=== PATIENT | male | born 1945 | race Caucasian/White ===

== ENCOUNTER 2017-10-07 17:22 | Emergency (ER) | payer BC ==
[2017-10-07 17:58] LABS: BILIRUBIN,URINE NEGATIVE (NEGATIVE); GLUCOSE, URINE (UA) NEGATIVE (NEGATIVE); KETONES,URINE (UA) NEGATIVE (NEGATIVE); LEUKOCYTE ESTERASE, URINE NEGATIVE (NEGATIVE); NITRITE,URINE NEGATIVE (NEGATIVE); OCCULT BLOOD,URINE NEGATIVE (NEGATIVE); PH,URINE 6.5 PH (5.0-7.5); PROTEIN,URINE TRACE mg/dL (NEGATIVE); UROBILINOGEN,URINE 0.2 (NORMAL) E.U./dL (NORMAL)
[2017-10-07 17:59] LABS: CLARITY,URINE CLEAR (CLEAR)
--- NOTE | 2017-10-07 18:06 | ED Physician Documentation ---
PD HPI ABD PAIN - Stated complaint Stated Complaint: LOW ABD PX - Chief complaint Chief Complaint: Abd Pain - History obtained from History obtained from: Patient - History of Present Illness Timing - onset: How many weeks ago (1) Timing - duration: Days (6), Weeks (1) Timing - details: Gradual onset, Still present, Waxing and waning Quality: Sharp, Other (burning/ shooting pain to right inguinal area.) Location: RLQ Radiation: Right flank Improved by: No: Eating, Laying still Worsened by: No: Eating, Breathing Associated symptoms: No: Fever Similar symptoms before: Has not had sx before Recently seen: Not recently seen Review of Systems Constitutional: denies: Fever, Chills, Myalgias Nose: denies: Rhinorrhea / runny nose, Congestion Throat: denies: Sore throat Respiratory: denies: Cough GI: reports: Constipation (somewhat firm and limited amount for a week). denies : Nausea, Vomiting, Diarrhea : reports: Frequency. denies: Dysuria, Hematuria, Discharge Skin: denies: Rash, Lesions PD PAST MEDICAL HISTORY - Past Medical History Cardiovascular: Hypertension, Coronary artery disease Endocrine/Autoimmune: Type 2 diabetes - Past Surgical History Past Surgical History: Yes Derm: Skin cancer surgery - Present Medications Home Medications: Ambulatory Orders Medication Instructions Recorded Confirmed Amlodipine Besylate 10 mg PO DAILY 08/22/15 08/22/15 Aspirin [Aspir 81] 81 mg PO DAILY 08/22/15 08/22/15 Labetalol [Trandate] 150 mg PO DAILY 08/22/15 08/22/15 Losartan/Hydrochlorothiazide 1 tab PO DAILY 08/22/15 08/22/15 [Losartan-Hctz 100-12.5 mg Tab] metFORMIN [Glucophage] 500 mg PO BID 08/22/15 08/22/15 Ciprofloxacin HCl [Cipro] 500 mg PO DAILY 10/07/17 Docusate Sodium 100 mg PO DAILY #20 capsule 10/07/17 Simvastatin 10 mg PO DAILY 10/07/17 Tramadol HCl 50 mg PO Q6H PRN #20 tablet 10/07/17 - Allergies Allergies/Adverse Reactions: Allergies Allergy/AdvReac Type Severity Reaction Status Date / Time Penicillins Allergy Respiratory Verified 08/22/15 14:39 terazosin [From Hytrin] AdvReac depression Verified 10/07/17 17:34 - Social History Does the pt smoke?: Yes Smoking Status: Current every day smoker Does the pt drink ETOH?: Yes Does the pt have substance abuse?: No - Immunizations Immunizations are current?: Yes PD ED PE NORMAL - Vitals Vital signs reviewed: Yes - General General: Alert and oriented X 3, No acute distress, Well developed/nourished - HEENT HEENT: PERRL, Moist mucous membranes, Pharynx benign - Neck Neck: Supple, no meningeal sign, No bony TTP, No adenopathy - Cardiac Cardiac: RRR, No murmur - Respiratory Respiratory: Clear bilaterally - Abdomen Abdomen: Normal bowel sounds, Soft, Non tender, Non distended - Rectal Rectal: Deferred, Other (scrotum and testicles not tender. no inguinal hernia noted. ) - Back Back: No CVA TTP - Derm Derm: Normal color, Warm and dry, No rash - Extremities Extremities: No tenderness to palpate, Normal ROM s pain - Neuro Neuro: Alert and oriented X 3, No motor deficit, Normal speech Results - Vitals Vitals: Vital Signs - 24 hr 10/07/17 10/07/17 10/07/17 17:30 19:57 20:12 Temperature 36.7 C Heart Rate 84 80 Respiratory 19 18 17 Rate Blood Pressure 163/95 H 180/88 H O2 Saturation 97 96 10/07/17 10/07/17 20:30 22:07 Temperature 36.9 C 36.8 C Heart Rate 80 81 Respiratory 16 18 Rate Blood Pressure 166/76 H 168/135 H O2 Saturation 94 95 Oxygen O2 Source Room air - Labs Labs: Laboratory Tests 10/07/17 10/07/17 10/07/17 17:45 19:18 19:18 WBC 8.5 RBC 4.62 L Hgb 14.7 Hct 42.4 MCV 91.8 MCH 31.9 H MCHC 34.7 RDW 13.1 Plt Count 248 MPV 8.4 Neut # 5.3 Lymph # 2.2 [place] # 0.7 Eos # 0.3 Baso # 0.1 Absolute Nucleated RBC 0.00 Nucleated RBC % 0.0 Sodium 136 Potassium 3.1 L Chloride 98 L Carbon Dioxide 25 Anion Gap 13.0 BUN 11 Creatinine 0.7 Estimated GFR (MDRD) 111 Glucose 115 H Calcium 9.2 Total Bilirubin 0.8 AST 23 ALT 26 Alkaline Phosphatase 62 Total Protein 7.2 Albumin 4.1 Globulin 3.1 Albumin/Globulin Ratio 1.3 Lipase 30 Urine Color YELLOW Urine Clarity CLEAR Urine pH 6.5 Ur Specific [place] 1.010 Urine Protein TRACE Urine Glucose (UA) NEGATIVE Urine Ketones NEGATIVE Urine Occult Blood NEGATIVE Urine Nitrite NEGATIVE Urine Bilirubin NEGATIVE Urine Urobilinogen 0.2 (NORMAL) Ur Leukocyte Esterase NEGATIVE Ur Microscopic Review NOT INDICATED Urine Culture Comments NOT INDICATED - Rads (name of study) abd CT Radiology: Prelim report reviewed (no obvious cause for the pain) PD MEDICAL DECISION MAKING - ED course Complexity details: reviewed results, considered differential, d/w patient, d/w family (daughter) Departure - Departure Disposition: 01 Home, Self Care Clinical Impression: Right sided abdominal pain Condition: Stable Record reviewed to determine appropriate education?: Yes Instructions: ED Abdominal Pain Unkn Cause Follow-Up: Farzad Gonzalez MD [Primary Care Provider] - Prescriptions: Docusate Sodium 100 mg PO DAILY #20 capsule Tramadol HCl 50 mg PO Q6H PRN #20 tablet PRN Reason: Pain Comments: There is no obvious cause for the pain on the lower right abdomen that you have. This is based on the CT scan urine and blood tests. There are certainly things I will hurt that do not show on these tests. Consider muscular pain, nerve pain, irritated colon as some possibilities. I would have you continue with naproxen or ibuprofen twice daily. Add pain medicine if needed for worse pain. Take a daily stool softener so you do not get constipated from those. Less heavy physical activity in case at some muscular pain. Recheck if not better over the next 3-4 days. Discharge Date/Time: 10/07/17 22:12
[2017-10-07] MEDS ORDERED: SODIUM CHLORIDE 0.9% 1,000 ML IV ONE (19:03)
[2017-10-07] MEDS ORDERED: KETOROLAC 60 MG/2 ML VIAL IVP STA (19:04)
[2017-10-07 19:39] LABS: BASOPHILS # (AUTO) 0.1 10^3/uL (0.0-0.1); BASOPHILS % (AUTO) 0.6 %; EOSINOPHILS # (AUTO) 0.3 10^3/uL (0.0-0.7); HGB - HEMOGLOBIN 14.7 g/dL (14.0-18.0); LYMPHOCYTES # (AUTO) 2.2 10^3/uL (1.5-3.5); LYMPHOCYTES % (AUTO) 26.3 %; MEAN CORPUSCULAR HEMOGLOBIN 31.9 pg (27.0-31.0); MEAN CORPUSCULAR HGB CONC 34.7 g/dL (32.0-36.0); MEAN CORPUSCULAR VOLUME 91.8 fL (80.0-94.0); MEAN PLATELET VOLUME 8.4 fL (7.4-11.4); MONOCYTES # (AUTO) 0.7 10^3/uL (0.0-1.0); MONOCYTES % (AUTO) 7.9 %; NEUTROPHILS # (AUTO) 5.3 10^3/uL (1.5-6.6); NEUTROPHILS % (AUTO) 62.2 %; PLT - PLATELET COUNT 248 10^3/uL (130-450); RED BLOOD COUNT 4.62 10^6/uL (4.70-6.10); RED CELL DISTRIBUTION WIDTH 13.1 % (12.0-15.0); WHITE BLOOD COUNT 8.5 x10^3/uL (4.8-10.8)
[2017-10-07 19:59] LABS: ALBUMIN 4.1 g/dL (3.2-5.5); ALBUMIN/GLOBULIN RATIO 1.3 (1.0-2.2); BILIRUBIN,TOTAL 0.8 mg/dL (0.2-1.0); CALCIUM 9.2 mg/dL (8.5-10.3); CREATININE 0.7 mg/dL (0.6-1.2); TOTAL PROTEIN 7.2 g/dL (6.7-8.2)
[2017-10-07] MEDS ORDERED: IOPAMIDOL-300 100 ML VIAL ONE (20:17)
[2017-10-07] MEDS ORDERED: IOPAMIDOL-300 100 ML VIAL IVP ONE (20:24)
--- NOTE | 2017-10-07 20:54 | CT Report ---
EXAM: CT ABDOMEN AND PELVIS EXAM DATE: 10/07/2017 08:34 PM. CLINICAL HISTORY: Right lower abd pain. COMPARISONS: None. TECHNIQUE: Routine helical CT imaging was performed through the abdomen and pelvis. IV contrast: 100M L ISOVUE 300. Enteric contrast: No. Reconstructions: Coronal and sagittal. In accordance with CT protocol optimization, one or more of the following dose reduction techniques w ere utilized for this exam: automated exposure control, adjustment of mA and/or KV based on patient s ize, or use of iterative reconstructive technique. FINDINGS: Lung Bases: Unremarkable. Liver: Normal. No masses. Gallbladder/Bile Ducts: Unremarkable. Spleen: Normal. Pancreas: Normal. Adrenal Glands: Normal. Kidneys: Normal. No masses or hydronephrosis. Peritoneal Cavity/Bowel: Moderate sliding hiatal hernia. Unopacified stomach and small bowel nondiste nded. The appendix is not clearly identified. There is a small to moderate amount of formed stool in the colon. There is no pericolonic fat stranding. There is no lymphadenopathy, ascites, or pneumoperi toneum. Pelvic Organs: Bladder normal in size and contour. Prostate gland mildly enlarged. Seminal vesicles u nremarkable. Vasculature: Mild aortoiliac atherosclerotic calcification without abnormal dilation. Otherwise unrem arkable. Bones: Chronic bilateral L5 pars interarticularis defects. No significant subluxation. Mild diffuse d isk bulging at L4-L5 and L5-S1. Other: Right upper quadrant anterior abdominal wall scar. IMPRESSION: 1. Moderate sliding hiatal hernia. 2. Mild prostatomegaly. 3. No specific findings to explain right lower quadrant pain. The appendix is not clearly identified, but there is no pericecal inflammation. [facility] Referring Provider Line: [phone] SITE ID: [id number]
--- NOTE | 2017-10-07 20:54 | CT Preliminary Report ---
Exam: CT ABDOMEN/PELVIS W/ IMPRESSION: 1. Moderate sliding hiatal hernia. 2. Mild prostatomegaly. 3. No specific findings to explain right lower quadrant pain. The appendix is not clearly identified, but there is no pericecal inflammation. [facility] SITE ID: [id number]
[2017-10-07] MEDS ORDERED: HYDROcod/ACET 5/325 Prepack 6 PO STA (21:50)
[2017-10-07 22:11] VITALS: BP 168/135
== END 2017-10-07 22:12 | disposition home or self-care (01) ==
LOC: ED 17:22
DX: R10.31 Right lower quadrant pain (principal); I10 Essential (primary) hypertension; I25.10 Atherosclerotic heart disease of native coronary artery without angina pectoris; E11.9 Type 2 diabetes mellitus without complications; F17.200 Nicotine dependence, unspecified, uncomplicated; Z79.4 Long term (current) use of insulin; Z79.82 Long term (current) use of aspirin
CPT/HCPCS: 36415; 74177; 80053; 81003; 83690; 85025; 96361; 96374; 99284; Q9967; 81001; 87086

== ENCOUNTER 2023-05-13 09:58 | Outpatient (CLI) | payer BC | END 2023-05-13 09:59 | disposition home or self-care (01) | LOC: DI.S 09:58 | PROVIDERS: ATTEND Family Medicine | DX: Z53.9 Procedure and treatment not carried out, unspecified reason (principal) ==

== ENCOUNTER 2023-05-13 10:05 | Outpatient (CLI) | payer BC ==
--- NOTE | 2023-05-13 13:04 | XRAY Report ---
PROCEDURE: Ankle 2 View RT INDICATIONS: CHRONIC RIGHT ANKLE PAIN TECHNIQUE: 2 views of the ankle were acquired. COMPARISON: None. FINDINGS: Bones: No fractures or dislocations. Ankle mortise is normally aligned. No suspicious bony lesions . Mild osteoarthritic changes noted. Soft tissues: No tibiotalar joint effusion. Achilles tendon appears normal. IMPRESSION: 1. No acute bony abnormality. 2. Mild osteoarthritis. Reviewed by: Nathan Santos MD on 05/13/2023 1:02 PM PDT Approved by: Nathan Santos MD on 05/13/2023 1:02 PM PDT Station ID: [id number]
== END 2023-05-13 10:06 | disposition home or self-care (01) ==
LOC: DI.S 10:05
PROVIDERS: ATTEND Family Medicine
DX: M19.071 Primary osteoarthritis, right ankle and foot (principal)

== ENCOUNTER 2023-11-20 16:43 | Outpatient (CLI) | payer BC | END 2023-11-20 23:59 | disposition EMS.NT | LOC: EMS 16:43 | DX: Z48.01 Encounter for change or removal of surgical wound dressing (principal) ==

== ENCOUNTER 2023-11-27 13:45 | Outpatient (CLI) | payer BC | END 2023-11-27 23:59 | disposition short-term general hospital (02) | LOC: EMS 13:45 | DX: T85.628A Displacement of other specified internal prosthetic devices, implants and grafts, initial encounter (principal) | CPT/HCPCS: A0425; A0429 ==

== ENCOUNTER 2023-12-09 08:29 | Outpatient (CLI) | payer BC | END 2023-12-09 08:30 | disposition short-term general hospital (02) | LOC: EMS 08:29 | DX: R06.02 Shortness of breath (principal); R09.89 Other specified symptoms and signs involving the circulatory and respiratory systems; R05.9 Cough, unspecified; R09.3 Abnormal sputum; Z90.2 Acquired absence of lung [part of] | CPT/HCPCS: A0425; A0427 ==